=== PATIENT | female | born 1995 | race Caucasian/White ===

== ENCOUNTER 2017-12-17 01:54 | Emergency (ER) | payer SELFPAY ==
[2017-12-17 01:55] VITALS: BMI 26.3
[2017-12-17 02:06] VITALS: RESP 16; O2SAT 100
[2017-12-17] MEDS ORDERED: Sodium Chloride 0.9% 1,000 ML IV STA (02:22)
--- NOTE | 2017-12-17 02:29 | ED PDOC ---
Arrival/HPI - General Chief Complaint: GI Problem Time Seen by Provider: 12/17/17 02:22 Historian: Patient - History of Present Illness Narrative History of Present Illness (Text): 12/17/17 02:26 A 22 year old female presents to the emergency department complaining of multiple episodes of non-bilious non-bloody vomiting and diarrhea since earlier today. Patient reports her symptoms began after eating take out. Patient notes mild abdominal discomfort but denies any fever, chills, chest pain, shortness of breath or any other complaints. Time/Duration: Other (earlier today) Symptom Course: Unchanged Context: Home Past Medical History - Provider Review Nursing Documentation Reviewed: Yes - Infectious Disease Hx of Infectious Diseases: None - Tetanus Immunization Tetanus Immunization: Up to Date - Cardiac Hx Cardiac Disorders: Yes Hx Heart Murmur: Yes (ventricular septal defect) - Pulmonary Hx Respiratory Disorders: No - Neurological Hx Neurological Disorder: No - HEENT Hx HEENT Disorder: No - Renal Hx Renal Disorder: No - Endocrine/Metabolic Hx Endocrine Disorders: No - Hematological/Oncological Hx Blood Disorders: No - Integumentary Hx Dermatological Disorder: No - Gastrointestinal Hx Gastrointestinal Disorders: No - Genitourinary/Gynecological Hx Genitourinary Disorders: No - Psychiatric Hx Depression: No Hx Emotional Abuse: No Hx Physical Abuse: No Hx Substance Use: No - Past Surgical History Past Surgical History: No Previous - Anesthesia Hx Anesthesia: No - Suicidal Assessment Feels Threatened In Home Enviroment: No Family/Social History - Physician Review Nursing Documentation Reviewed: Yes Family/Social History: No Known Family HX Smoking Status: Unknown If Ever Smoked Hx Alcohol Use: No Hx Substance Use: No Hx Substance Use Treatment: No Allergies/Home Meds Allergies/Adverse Reactions: Allergies No Known Allergies Allergy (Verified 11/24/15 05:26) Review of Systems - Physician Review All systems were reviewed & negative as marked: Yes - Review of Systems Constitutional: absent: Fevers, Night Sweats Respiratory: absent: SOB Cardiovascular: absent: Chest Pain Gastrointestinal: Abdominal Pain, Diarrhea, Nausea, Vomiting Physical Exam Vital Signs Reviewed: Yes Vital Signs Temp Pulse Resp BP Pulse Ox 12/17/17 05:11 98.1 F 90 16 135/80 100 12/17/17 04:00 98.8 F 89 16 130/72 100 12/17/17 02:06 98.7 F 105 H 16 135/82 100 Temperature: Afebrile Blood Pressure: Normal Pulse: Tachycardic Respiratory Rate: Normal Appearance: Positive for: Well-Appearing, Non-Toxic, Comfortable Pain Distress: None Mental Status: Positive for: Alert and Oriented X 3 - Systems Exam Head: Present: Atraumatic, Normocephalic Pupils: Present: PERRL Extroacular Muscles: Present: EOMI Conjunctiva: Present: Normal Mouth: Present: Moist Mucous Membranes Neck: Present: Normal Range of Motion Respiratory/Chest: Present: Clear to Auscultation, Good Air Exchange. No: Respiratory Distress, Accessory Muscle Use Cardiovascular: Present: Regular Rate and Rhythm, Normal S1, S2. No: Murmurs Abdomen: Present: Normal Bowel Sounds. No: Tenderness, Distention, Peritoneal Signs Back: Present: Normal Inspection Upper Extremity: Present: Normal Inspection. No: Cyanosis, Edema Lower Extremity: Present: Normal Inspection. No: Edema Neurological: Present: GCS=15, CN II-XII Intact, Speech Normal Skin: Present: Warm, Dry, Normal Color. No: Rashes Psychiatric: Present: Alert, Oriented x 3, Normal Insight, Normal Concentration Medical Decision Making ED Course and Treatment: 12/17/17 02:26 Impression: A 22 year old female with multiple episodes of vomiting and diarrhea Plan: -- Labs -- Pepcid, Zofran and IV fluids -- Reassess and disposition Progress Notes: 12/17/17 04:58 I have discussed the results and plan with the patient, who expresses understanding. Patient in agreement with plan to be discharged home. Patient is stable for discharge. Patient was instructed to follow up with physician or return if symptoms persist/worsen or new concerning symptoms arise. - Lab Interpretations Lab Results: 12/17/17 02:45 12/17/17 02:45 Lab Results 12/17/17 02:45: WBC 8.9, RBC 4.68, Hgb 13.8, Hct 41.6, MCV 88.9, MCH 29.5, MCHC 33.2, RDW 13.8, Plt Count 340, MPV 9.8 12/17/17 02:45: Sodium 145, Potassium 3.4 L, Chloride 108 H, Carbon Dioxide 23, Anion Gap 18, BUN 8, Creatinine 0.4 L, Est GFR ( Amer) > 60, Est GFR (Non -Af Amer) > 60, Random Glucose 108, Calcium 8.7, Total Bilirubin 0.4, AST 17, ALT 26, Alkaline Phosphatase 44, Total Protein 7.2, Albumin 4.0, Globulin 3.2, Albumin/Globulin Ratio 1.2, Lipase 47 - Medication Orders Current Medication Orders: Discontinued Medications Famotidine (Pepcid) 20 mg IVP STAT STA Stop: 12/17/17 02:23 Last Admin: 12/17/17 02:38 Dose: 20 mg IVP Administration Document 12/17/17 02:38 AB (Rec: 12/17/17 02:39 AB [id number]) Charges for Administration # of IVP Administrations 1 Sodium Chloride (Sodium Chloride 0.9%) 1,000 mls @ 999 mls/hr IV .Q1H1M STA Stop: 12/17/17 03:22 Last Admin: 12/17/17 02:38 Dose: 999 mls/hr eMAR Start Stop Document 12/17/17 02:38 AB (Rec: 12/17/17 02:38 AB [id number]) Intravenous Solution Start Date 12/17/17 Start Time 02:38 End Date 12/17/17 End time 03:38 Total Infusion Time 60 Ondansetron HCl (Zofran Inj) 4 mg IVP ONCE ONE Stop: 12/17/17 02:23 Last Admin: 12/17/17 02:38 Dose: IVP Administration Document 12/17/17 02:38 AB (Rec: 12/17/17 02:38 AB [id number]) Charges for Administration # of IVP Administrations 0 Ondansetron HCl (Zofran Inj) 4 mg IVP ONCE ONE Stop: 12/17/17 04:01 Last Admin: 12/17/17 04:04 Dose: 4 mg IVP Administration Document 12/17/17 04:04 AB (Rec: 12/17/17 04:04 AB [id number]) Charges for Administration # of IVP Administrations 1 Potassium Chloride (K-Dur 20 Meq Er Tab) 20 meq PO STAT STA Stop: 12/17/17 04:55 Last Admin: 12/17/17 05:01 Dose: 20 meq - Scribe Statement The provider has reviewed the documentation as recorded by the Shelby Momin Provider Scribe Attestation: All medical record entries made by the Scribe were at my direction and personally dictated by me. I have reviewed the chart and agree that the record accurately reflects my personal performance of the history, physical exam, medical decision making, and the department course for this patient. I have also personally directed, reviewed, and agree with the discharge instructions and disposition. Disposition/Present on Arrival - Present on Arrival Any Indicators Present on Arrival: No History of DVT/PE: No History of Uncontrolled Diabetes: No Urinary Catheter: No History of Decub. Ulcer: No History Surgical Site Infection Following: None - Disposition Have Diagnosis and Disposition been Completed?: Yes Diagnosis: Gastroenteritis Disposition: HOME/ ROUTINE Disposition Time: 04:58 Patient Plan: Discharge Condition: GOOD Discharge Instructions (ExitCare): Diarrhea in Adolescents and Adults, Gastroenteritis (ED) Additional Instructions: Drink small amounts of liquids at a time/recommend Gatorade or Pedialyte/ advance diet slowly as tolerated/take meds as directed/follow up with your doctor this week Prescriptions: Ondansetron [Zofran Odt] 4 mg PO Q6 PRN #12 odt PRN Reason: Nausea/Vomiting Forms: [facility] ([place])
[2017-12-17 02:58] LABS: HEMOGLOBIN 13.8 g/dL (12.0-16.0); MEAN CELL VOLUME 88.9 fl (80.0-105.0); MEAN CORPUSCULAR HEMOGLOBIN 29.5 pg (25.0-35.0); MEAN CORPUSCULAR HGB CONC 33.2 g/dl (31.0-37.0); MEAN PLATELET VOLUME 9.8 fl (7.0-11.0); RBC 4.68 10^6/uL (3.5-6.1); RED CELL DISTRIBUTION WIDTH 13.8 % (11.5-14.5); WHITE BLOOD COUNT 8.9 10^3/ul (4.5-11.0)
[2017-12-17 03:53] LABS: ALB/GLOB RATIO 1.2 (1.1-1.8); ALT/SGPT 26 U/L (7-56); AST/SGOT 17 U/L (14-36); BLOOD UREA NITROGEN 8 mg/dL (7-21); CALCIUM 8.7 mg/dL (8.4-10.5); GFR AFRICAN-AMERICAN > 60; GFR NON-AFRICAN AMERICAN > 60; LIPASE 47 U/L (23-300)
[2017-12-17] MEDS ORDERED: Potassium Chloride 20 mEq ER Tab PO STA (04:54)
[2017-12-17 05:12] VITALS: BP 135/80; PULSE 90; TEMP 98.1
== END 2017-12-17 05:11 | disposition home or self-care (01) ==
LOC: ED 01:54
DX: K52.9 Noninfective gastroenteritis and colitis, unspecified (principal)
CPT/HCPCS: 80053; 83690; 85027; 96361; 96374; 96375; 99284; J2405; J7040

== ENCOUNTER 2019-03-27 23:14 | Emergency (ER) | payer SELFPAY ==
[2019-03-27 23:14] VITALS: BMI 26.3
[2019-03-27] MEDS ORDERED: Sodium Chloride 0.9% 1,000 ML IV STA (23:49)
[2019-03-28 00:14] LABS: BASO # 0.04 K/mm3 (0.0-2.0); BASO % 0.5 % (0.0-3.0); EOS # 0.1 (0.0-0.7); EOS % 0.9 % (1.5-5.0); HEMOGLOBIN 12.7 g/dL (12.0-16.0); LYMPH # 4.4 (1.2-3.4); LYMPH % 56.7 % (22.0-35.0); MEAN CELL VOLUME 86.3 fl (80.0-105.0); MEAN CORPUSCULAR HEMOGLOBIN 28.5 pg (25.0-35.0); MEAN CORPUSCULAR HGB CONC 33.1 g/dl (31.0-37.0); MEAN PLATELET VOLUME 9.1 fl (7.0-11.0); MONO # 0.5 (0.1-0.6); MONO % 6.5 % (1.0-6.0); RBC 4.45 10^6/uL (3.5-6.1); RED CELL DISTRIBUTION WIDTH 13.6 % (11.5-14.5); WHITE BLOOD COUNT 7.8 10^3/uL (4.5-11.0)
[2019-03-28 01:03] LABS: D DIMER < 200 ng/mlDDU (0-243); INR 1.22; PARTIAL THROMBOPLASTIN TIME 31.1 Seconds (26.9-38.3); PROTHROMBIN TIME 13.5 SECONDS (9.4-12.5)
[2019-03-28 01:04] LABS: ALB/GLOB RATIO 1.3 (1.1-1.8); ALBUMIN 4.6 g/dL (3.0-4.8); ALT/SGPT 21 U/L (7-56); AST/SGOT 32 U/L (14-36); BLOOD UREA NITROGEN 10 mg/dL (7-21); CALCIUM 9.2 mg/dL (8.4-10.5); GFR NON-AFRICAN AMERICAN > 60
[2019-03-28] MEDS ORDERED: Potassium Chloride 20 mEq ER Tab PO STA (01:04)
--- NOTE | 2019-03-28 01:05 | ED PDOC ---
Arrival/HPI <CruzRashad - Last Filed: 03/28/19 02:31> - General Historian: Patient - History of Present Illness Narrative History of Present Illness (Text): 23 y/o female with PMH of VSD presents to the ED c/o SOB x 30 minutes that began during wedding planning with her fiance. Associated sternal chest pain worse with deep inspiration today and dry cough that has been present for the last week. Pt states she has had symptoms like this in the past, and regularly sees a furnace roaster and clinical safety manager who have not given her a specific diagnosis. She states her workups are normal from both specialties. No recent travel, long immobilization, surgery, history of malignancy, or OCP/hormone use. Denies fever, chills, sinus congestion, sore throat, palpitations, diaphoresis, headache, dizziness, calf pain/swelling, abdominal pain, nausea, vomiting, back pain, urinary symptoms, or any other associated symptoms. <Sidra Browning - Last Filed: 03/28/19 18:31> - General Chief Complaint: Shortness Of Breath Time Seen by Provider: 03/27/19 23:30 Past Medical History - Provider Review Nursing Documentation Reviewed: Yes - Infectious Disease Hx of Infectious Diseases: None - Tetanus Immunization Tetanus Immunization: Up to Date - Cardiac Hx Cardiac Disorders: Yes Hx Heart Murmur: Yes (ventricular septal defect) - Pulmonary Hx Respiratory Disorders: No - Neurological Hx Neurological Disorder: No - HEENT Hx HEENT Disorder: No - Renal Hx Renal Disorder: No - Endocrine/Metabolic Hx Endocrine Disorders: No - Hematological/Oncological Hx Blood Disorders: No - Integumentary Hx Dermatological Disorder: No - Gastrointestinal Hx Gastrointestinal Disorders: No - Genitourinary/Gynecological Hx Genitourinary Disorders: No - Psychiatric Hx Depression: No Hx Emotional Abuse: No Hx Physical Abuse: No Hx Substance Use: No - Past Surgical History Past Surgical History: No Previous - Anesthesia Hx Anesthesia: No - Suicidal Assessment Feels Threatened In Home Enviroment: No <Sidra Browning - Last Filed: 03/28/19 18:31> Family/Social History - Physician Review Nursing Documentation Reviewed: Yes Family/Social History: No Known Family HX Smoking Status: Unknown If Ever Smoked Hx Alcohol Use: No Hx Substance Use: No Hx Substance Use Treatment: No <Sidra Brwoning - Last Filed: 03/28/19 18:31> Allergies/Home Meds <CruzRashad - Last Filed: 03/28/19 02:31> <NamSidra - Last Filed: 03/28/19 18:31> Allergies/Adverse Reactions: Allergies No Known Allergies Allergy (Verified 11/24/15 05:26) Review of Systems - Review of Systems Constitutional: Normal. absent: Fevers Eyes: Normal. absent: Vision Changes ENT: Normal. absent: Sore Throat, Sinus Congestion Respiratory: SOB, Cough Cardiovascular: Chest Pain. absent: Palpitations Gastrointestinal: Normal. absent: Abdominal Pain, Nausea, Vomiting Genitourinary Female: Normal. absent: Dysuria, Frequency Musculoskeletal: Normal. absent: Back Pain, Neck Pain Skin: Normal. absent: Rash Neurological: Normal. absent: Headache, Dizziness <WilfridopietroSidra - Last Filed: 03/28/19 18:31> Physical Exam Vital Signs Temp Pulse Resp BP Pulse Ox 03/28/19 01:22 97.6 F 86 18 112/66 98 03/27/19 23:45 22 100 03/27/19 23:21 91 H 22 142/95 H 100 <CruzRashad - Last Filed: 03/28/19 02:31> Vital Signs Reviewed: Yes Vital Signs Pulse Resp BP Pulse Ox 03/27/19 23:45 22 100 03/27/19 23:21 91 H 22 142/95 H 100 Temperature: Afebrile Blood Pressure: Hypertensive Pulse: Regular Respiratory Rate: Normal Appearance: Positive for: Non-Toxic, Uncomfortable Pain Distress: Mild Mental Status: Positive for: Alert and Oriented X 3 - Systems Exam Head: Present: Atraumatic, Normocephalic Pupils: Present: PERRL Extroacular Muscles: Present: EOMI Conjunctiva: Present: Normal Mouth: Present: Moist Mucous Membranes Neck: Present: Normal Range of Motion. No: Meningeal Signs Respiratory/Chest: Present: Clear to Auscultation, Good Air Exchange, Tender to Palpation (over sternocostal and costochondral joints ). No: Respiratory Distress, Accessory Muscle Use, Wheezes, Decreased Breath Sounds Cardiovascular: Present: Regular Rate and Rhythm, Normal S1, S2, Peripheal Pulses Present Abdomen: No: Tenderness Back: Present: Normal Inspection. No: CVA Tenderness Upper Extremity: Present: Normal Inspection, Normal ROM Lower Extremity: Present: Normal Inspection, Normal ROM Neurological: Present: GCS=15, Speech Normal, Motor Func Grossly Intact, Normal Sensory Function, Gait Normal Skin: Present: Warm, Dry, Normal Color. No: Rashes Psychiatric: Present: Alert, Oriented x 3, Anxious <Motter,Sidra - Last Filed: 03/28/19 18:31> Medical Decision Making - Lab Interpretations Lab Results: PT 13.5 SECONDS (9.4-12.5) H 03/28/19 00:41 INR 1.22 03/28/19 00:41 APTT 31.1 Seconds (26.9-38.3) 03/28/19 00:41 D-Dimer, Quantitative < 200 ng/mlDDU (0-243) 03/28/19 00:41 Troponin I < 0.01 ng/mL 03/28/19 00:41 Total Bilirubin 0.6 mg/dL (0.2-1.3) 03/28/19 00:41 AST 32 U/L (14-36) 03/28/19 00:41 ALT 21 U/L (7-56) 03/28/19 00:41 Alkaline Phosphatase 62 U/L (38-126) 03/28/19 00:41 Total Protein 8.2 g/dL (5.8-8.3) 03/28/19 00:41 Albumin 4.6 g/dL (3.0-4.8) 03/28/19 00:41 Globulin 3.6 gm/dL 03/28/19 00:41 Albumin/Globulin Ratio 1.3 (1.1-1.8) 03/28/19 00:41 Urine Color Yellow (YELLOW) 03/28/19 01:05 Urine Appearance Sl cloudy (CLEAR) 03/28/19 01:05 Urine pH 6.0 (4.7-8.0) 03/28/19 01:05 Ur Specific [place] 1.010 (1.005-1.035) 03/28/19 01:05 Urine Protein Negative mg/dL (<30 mg/dL) 03/28/19 01:05 Urine Glucose (UA) Negative mg/dL (NEGATIVE) 03/28/19 01:05 Urine Ketones Negative mg/dL (NEGATIVE) 03/28/19 01:05 Urine Blood Negative (NEGATIVE) 03/28/19 01:05 Urine Nitrate Negative (NEGATIVE) 03/28/19 01:05 Urine Bilirubin Negative (NEGATIVE) 03/28/19 01:05 Urine Urobilinogen 0.2 E.U./dL (<1 E.U./dL) 03/28/19 01:05 Ur Leukocyte Esterase Small [place]/uL (NEGATIVE) H 03/28/19 01:05 Urine RBC 0 - 2 /hpf (0-2) 03/28/19 01:05 Urine WBC 2 - 5 /hpf (0-6) 03/28/19 01:05 Ur Epithelial Cells Many /hpf (0-5) H 03/28/19 01:05 Urine Bacteria Small /hpf (NONE) 03/28/19 01:05 - RAD Interpretation Radiology Orders: 03/27/19 23:48 CHEST PORTABLE [RAD] Stat - Medication Orders Current Medication Orders: Discontinued Medications Sodium Chloride (Sodium Chloride 0.9%) 1,000 mls @ 999 mls/hr IV .Q1H1M STA Stop: 03/28/19 00:49 Last Admin: 03/27/19 23:45 Dose: 999 mls/hr eMAR Start Stop Document 03/27/19 23:45 KV (Rec: 03/28/19 00:09 KV [id number]) Intravenous Solution Start Date 03/28/19 Start Time 23:45 Ibuprofen (Motrin Tab) 600 mg PO STAT STA Stop: 03/27/19 23:50 Last Admin: 03/28/19 00:09 Dose: 600 mg MAR Pain/Vitals Document 03/28/19 00:09 KV (Rec: 03/28/19 00:09 KV [id number]) Pain Reassessment Is This A Pain ReAssessment? No Sleep Is patient sleeping during reassessment? No Presence of Pain Presence of Pain Yes Pain Scale Used Protocol: PSCALES Pain Scale Used Numeric Location Pain Location Body Site Chest Description Constant Intensity 6 Scale Used Numeric Potassium Chloride (K-Dur 20 Meq Er Tab) 40 meq PO STAT STA Stop: 03/28/19 01:05 Last Admin: 03/28/19 01:21 Dose: 40 meq <Rashad Arroyo - Last Filed: 03/28/19 02:31> ED Course and Treatment: Initial Plan: * Labs * UA, UDS * EKG * CXR * IVF * Ibuprofen EKG shows NSR at 93 with LVH, left atrial enlargement, and prolonged QT; No STEMI, nonspecific ST/T wave changes Patient reports significant improvement in symptoms with medication Bloodwork reviewed, shows mild hypokalemia otherwise unremarkable Urine shows small leuk esterase. Will culture. Pt is aymptomatic. CXR shows no active disease or pneumothorax as read by me and ED attending Dr. Arroyo HEART Score for Major Cardiac Events RESULT SUMMARY: 2 points Low Score (0-3 points) Risk of MACE of 0.9-1.7%. INPUTS: History > 1 = Moderately suspicious EKG > 1 = Non-specific repolarization disturbance Age > 0 = <45 Risk factors > 0 = No known risk factors Initial troponin > 0 = <normal limit Advised PMD, furnace roaster, and clinical safety manager followup. Symptoms suspicious for costochondritis and anxiety secondary to reproducible pain and lack of risk factors for ischemic disease or PE. Vitals have improved from triage. Pt comfortable with discharge home. Diagnostic testing results and plan of care discussed with patient. Strict instructions given regarding importance of followup, and signs/symptoms to return to ER including worsening SOB, fever, chills, or any other new/worsening symptoms. Pt verbalized understanding of discussion. Patient is A&Ox3, ambulating with steady gait, with vital signs stable for discharge. - Lab Interpretations Narrative Lab Interpretation (Text): 03/28/19 04:11 03/27/19 23:45 03/28/19 00:41 Lab Results 03/28/19 01:05: Urine Opiates Screen Negative, Urine Methadone Screen Negative, Ur Barbiturates Screen Negative, Ur Phencyclidine Scrn Negative, Ur Amphetamines Screen Negative, U Benzodiazepines Scrn Negative, U Oth Cocaine Metabols Negative, U Cannabinoids Screen Negative 03/28/19 01:05: Urine Color Yellow, Urine Appearance Sl cloudy, Urine pH 6.0, Ur Specific [place] 1.010, Urine Protein Negative, Urine Glucose (UA) Negative, Urine Ketones Negative, Urine Blood Negative, Urine Nitrate Negative, Urine Bilirubin Negative, Urine Urobilinogen 0.2, Ur Leukocyte Esterase Small H, Urine RBC 0 - 2, Urine WBC 2 - 5, Ur Epithelial Cells Many H, Urine Bacteria Small 03/28/19 00:41: Sodium 138, Potassium 3.5 L, Chloride 104, Carbon Dioxide 26, Anion Gap 12, BUN 10, Creatinine 0.4 L, Est GFR ( Amer) > 60, Est GFR (Non-Af Amer) > 60, Random Glucose 98, Calcium 9.2, Magnesium 1.7, Total Bilirubin 0.6, AST 32, ALT 21, Alkaline Phosphatase 62, Lactate Dehydrogenase 416, Total Creatine Kinase 40, Troponin I < 0.01, Total Protein 8.2, Albumin 4.6, Globulin 3.6, Albumin/Globulin Ratio 1.3 03/28/19 00:41: PT 13.5 H, INR 1.22, APTT 31.1, D-Dimer, Quantitative < 200 03/27/19 23:45: WBC 7.8, RBC 4.45, Hgb 12.7, Hct 38.4, MCV 86.3, MCH 28.5, MCHC 33.1, RDW 13.6, Plt Count 399, MPV 9.1, Neut % (Auto) 35.4 L, Lymph % (Auto) 56.7 H, [place] % (Auto) 6.5 H, Eos % (Auto) 0.9 L, Baso % (Auto) 0.5, Lymph # (Auto) 4.4 H, [place] # (Auto) 0.5, Eos # (Auto) 0.1, Baso # (Auto) 0.04, Absolute Neuts (auto) 2.77 Lab Results: PT 13.5 SECONDS (9.4-12.5) H 03/28/19 00:41 INR 1.22 03/28/19 00:41 APTT 31.1 Seconds (26.9-38.3) 03/28/19 00:41 D-Dimer, Quantitative < 200 ng/mlDDU (0-243) 03/28/19 00:41 Total Bilirubin 0.6 mg/dL (0.2-1.3) 03/28/19 00:41 AST 32 U/L (14-36) 03/28/19 00:41 ALT 21 U/L (7-56) 03/28/19 00:41 Alkaline Phosphatase 62 U/L (38-126) 03/28/19 00:41 Total Protein 8.2 g/dL (5.8-8.3) 03/28/19 00:41 Albumin 4.6 g/dL (3.0-4.8) 03/28/19 00:41 Globulin 3.6 gm/dL 03/28/19 00:41 Albumin/Globulin Ratio 1.3 (1.1-1.8) 03/28/19 00:41 I have reviewed the lab results: Yes - RAD Interpretation Radiology Orders: 03/27/19 23:48 CHEST PORTABLE [RAD] Stat - EKG Interpretation EKG Interpretation (Text): Rate 93; NSR; Prolonged QT, normal PA; Normal axis; No STEMI, nonspecific ST/T wave changes Interpreted by ED Physician: Yes Type: 12 lead EKG - Medication Orders Current Medication Orders: Discontinued Medications Sodium Chloride (Sodium Chloride 0.9%) 1,000 mls @ 999 mls/hr IV .Q1H1M STA Stop: 03/28/19 00:49 Last Admin: 03/27/19 23:45 Dose: 999 mls/hr eMAR Start Stop Document 03/27/19 23:45 KV (Rec: 03/28/19 00:09 KV [id number]) Intravenous Solution Start Date 03/28/19 Start Time 23:45 Ibuprofen (Motrin Tab) 600 mg PO STAT STA Stop: 03/27/19 23:50 Last Admin: 03/28/19 00:09 Dose: 600 mg MAR Pain/Vitals Document 03/28/19 00:09 KV (Rec: 03/28/19 00:09 KV [id number]) Pain Reassessment Is This A Pain ReAssessment? No Sleep Is patient sleeping during reassessment? No Presence of Pain Presence of Pain Yes Pain Scale Used Protocol: PSCALES Pain Scale Used Numeric Location Pain Location Body Site Chest Description Constant Intensity 6 Scale Used Numeric <Sidra Browning - Last Filed: 03/28/19 18:31> - PA / MASTER TECHNICIAN / Resident Statement / has reviewed & agrees with the documentation as recorded. <Rashad Arroyo - Last Filed: 03/28/19 02:31> Disposition/Present on Arrival <Rashad Arroyo - Last Filed: 03/28/19 02:31> - Present on Arrival Any Indicators Present on Arrival: No History of DVT/PE: No History of Uncontrolled Diabetes: No Urinary Catheter: No History of Decub. Ulcer: No History Surgical Site Infection Following: None - Disposition Have Diagnosis and Disposition been Completed?: Yes Disposition Time: 01:00 Patient Plan: Discharge <Sidra Brownign - Last Filed: 03/28/19 18:31> - Disposition Diagnosis: Chest pain Disposition: HOME/ ROUTINE Condition: IMPROVED Discharge Instructions (ExitCare): Pleuritic Chest Pain, Costochondritis, Chest Pain (ED) Additional Instructions: Ibuprofen every 8 hours for pain, take with food Increase fluids Followup with furnace roaster and clinical safety manager within 2 days Followup with primary doctor within 2 days Return to ER with any new/worsening symptoms Prescriptions: Ibuprofen [Motrin Tab] 600 mg PO Q8 #30 tab [place] [facility] [place] - Follow up with primary Meli Lombardo MD [Medical Doctor] - Follow up with primary Forms: [facility] ([place]), WORK NOTE
[2019-03-28 01:14] LABS: TROPONIN I < 0.01 ng/mL
[2019-03-28 01:22] VITALS: BP 112/66; PULSE 86; RESP 18; O2SAT 98
[2019-03-28 01:24] LABS: URINE BILIRUBIN NEGATIVE (NEGATIVE); URINE BLOOD NEGATIVE (NEGATIVE); URINE GLUCOSE (UA) NEGATIVE (NEGATIVE); URINE LEUKOCYTE ESTERASE SMALL Leu/uL (NEGATIVE); URINE PROTEIN NEGATIVE mg/dL (<30 mg/dL); URINE UROBILINOGEN 0.2 E.U./dL (<1 E.U./dL)
[2019-03-28 01:25] LABS: URINE APPEARANCE SL CLOUDY (CLEAR); URINE COLOR YELLOW (YELLOW)
[2019-03-28 01:33] LABS: URINE BACTERIA SMALL /hpf; URINE EPITHELIAL CELLS MANY /hpf (0-5); URINE RBC 0 - 2 /hpf (0-2)
[2019-03-28 01:45] LABS: BARBITURATES, UR NEGATIVE (NEGATIVE); BENZODIAZEPINES, UR NEGATIVE (NEGATIVE); OPIATES, UR NEGATIVE (NEGATIVE); PHENCYCLIDINE, UR NEGATIVE (NEGATIVE)
[2019-03-28 01:49] VITALS: TEMP 97.6
--- NOTE | 2019-03-28 08:49 | RAD ---
Date of service: 03/28/2019 HISTORY: SOB COMPARISON: 08/29/2013 FINDINGS: LUNGS: No active pulmonary disease. PLEURA: No significant pleural effusion identified, no pneumothorax apparent. CARDIOVASCULAR: No atherosclerotic calcification present Normal. OSSEOUS STRUCTURES: No significant abnormalities. VISUALIZED UPPER ABDOMEN: Normal. OTHER FINDINGS: None. IMPRESSION: No active disease. No significant interval change compared to the prior examination(s).
--- NOTE | 2019-03-28 16:45 | CARD ---
APPROVED REPORT Date of service: 03/28/2019 EKG Measurement Heart [id number] <Conclusion> Normal sinus rhythm Normal Electrocardiogram
== END 2019-03-28 01:57 | disposition home or self-care (01) ==
LOC: ED 23:14
DX: R07.9 Chest pain, unspecified (principal); R01.1 Cardiac murmur, unspecified
CPT/HCPCS: 71045; 80053; 81001; 81025; 82550; 83615; 83735; 84484; 85025; 85378; 85610; 85730; 87086; 93005; 99284; G0480; J7030